=== PATIENT | female | born 2000 | race African-American/Black ===

== ENCOUNTER 2022-04-10 15:46 | Emergency (ER) | payer MEDICAID ==
[~2022-04-10] VITALS: Ht 170.2 cm; Wt 187.0 kg
[2022-04-10 16:59] VITALS: BP 129/77
[2022-04-10 18:15] LABS: Basophils # (auto) 0 10 ^3/uL (0-0.2); Basophils % (auto) 0.2 % (0.0-2.0); Eosinophils # (auto) 0 10 ^3/uL (0-0.8); Eosinophils % (auto) 0.1 % (0.0-7.0); Hematocrit 36.4 % (36.0-46.0); Hemoglobin 12.2 g/dL (12.2-16.2); Lymphocytes # (auto) 1.5 10 ^3/uL (0.4-5.4); Lymphocytes % (auto) 21.6 % (10.0-50.0); Mean Corpuscular Hemoglobin 31.3 pg (28.0-32.0); Mean Corpuscular Hgb Conc. 33.6 g/dL (32.0-36.0); Mean Corpuscular Volume 93.1 fL (80.0-100.0); Monocytes # (auto) 0.6 10 ^3/uL (0-1.3); Neutrophils # (auto) 4.9 10 ^3/uL (1.6-8.6); Neutrophils % (auto) 70.1 % (37.0-80.0); Nucleated Red Blood Cells % 0.1 %; Red Blood Cells 3.92 10^6/uL (4.0-5.20); Red Cell Distribution Width 13.2 % (11.8-14.3)
[2022-04-10 18:28] LABS: Albumin 3.4 g/dL (3.4-5.0); BUN/Creatinine Ratio 12.3; Calcium 9.1 mg/dL (8.5-10.1); Potassium 4.1 mmol/L (3.5-5.1)
[2022-04-10] MEDS ORDERED: KETOROLAC TROMETH 60MG/2ML VIAL IM ONE (18:30)
[2022-04-10 18:31] LABS: Bilirubin, Total 0.6 mg/dL (0.2-1.0)
[2022-04-10] MEDS ORDERED: ACET-1080 PO (18:33)
[2022-04-10 18:48] LABS: Urine Bacteria NONE SEEN /hpf (None Seen); Urine Blood Negative /uL (Negative); Urine Mucus FEW (None Seen); Urine Specific Gravity 1.014 (1.001-1.035); Urine WBC 81 /hpf (0 - 5)
[2022-04-10] MEDS ORDERED: NITR-87 PO (19:10)
== END 2022-04-10 19:20 | disposition home or self-care (01) ==
LOC: ER 15:46 → EDBD 15:46 → ER 19:19
DX: K76.0 Fatty (change of) liver, not elsewhere classified (principal); N39.0 Urinary tract infection, site not specified; Z79.899 Other long term (current) drug therapy
CPT/HCPCS: 36415; 76705; 80053; 81001; 81025; 83690; 85025; 96372; 99284; J1885

== ENCOUNTER 2022-11-02 13:38 | Emergency (ER) | payer MEDICAID ==
[~2022-11-02] VITALS: Ht 170.2 cm; Wt 76.8 kg
[~2022-11-02 13:38] MED LIST: ACET-1080 PO; NITR-87 PO
[2022-11-02 13:44] VITALS: BP 128/72; PULSE 87; RESP 18; TEMP 98.3; O2SAT 99
[2022-11-02] MEDS ORDERED: FAMOTIDINE 20 MG TAB PO ONE (15:00)
[2022-11-02] MEDS ORDERED: DexAMETHasone SOD PHOS 10MG/1ML VIAL INJ IM ONE (15:00)
[2022-11-02] MEDS ORDERED: DIPH25TA54 PO (15:00)
[2022-11-02] MEDS ORDERED: PRED20TA2 PO (15:00)
[2022-11-02] MEDS ORDERED: FAMO20TA10 PO (15:00)
[2022-11-02] MEDS ORDERED: diphenhdrAMINE HCL 25 MG CAP PO ONE (15:00)
== END 2022-11-02 17:56 | disposition home or self-care (01) ==
LOC: ER 13:38
DX: L50.0 Allergic urticaria (principal); Z79.899 Other long term (current) drug therapy
CPT/HCPCS: 96372; 99283; J1100

== ENCOUNTER → 2024-07-21 | Outpatient (CLI) | payer MEDICAID ==
[~2024-07-21] MED LIST changes: +DIPH25TA54 PO; +FAMO20TA10 PO; +PRED20TA2 PO
[2024-07-21 13:57] LABS: Basophils # (auto) 0 10 ^3/uL (0-0.2); Basophils % (auto) 0.6 % (0.0-2.0); Eosinophils # (auto) 0.2 10 ^3/uL (0-0.8); Eosinophils % (auto) 4.3 % (0.0-7.0); Hemoglobin 12.8 g/dL (12.2-16.2); Lymphocytes # (auto) 1.9 10 ^3/uL (0.4-5.4); Lymphocytes % (auto) 32.5 % (10.0-50.0); Mean Corpuscular Hemoglobin 31.8 pg (28.0-32.0); Mean Corpuscular Hgb Conc. 34.6 g/dL (32.0-36.0); Mean Corpuscular Volume 91.9 fL (80.0-100.0); Monocytes # (auto) 0.4 10 ^3/uL (0-1.3); Monocytes % (auto) 6.8 % (0.0-12.0); Neutrophils # (auto) 3.2 10 ^3/uL (1.6-8.6); Neutrophils % (auto) 55.8 % (37.0-80.0); Nucleated Red Blood Cells % 0.1 %; Platelet Count (auto) 264 10^3/uL (140-450); Red Blood Cells 4.02 10^6/uL (4.0-5.20); Red Cell Distribution Width 13.6 % (11.8-14.3); White Blood Cell 5.8 10^3/uL (4.4-10.8)
== END | disposition home or self-care (01) ==
LOC: LAB 13:02
PROVIDERS: ATTEND Obstetrics & Gynecology
DX: O09.512 Supervision of elderly primigravida, second trimester (principal); Z3A.00 Weeks of gestation of pregnancy not specified; Z79.899 Other long term (current) drug therapy
CPT/HCPCS: 83036; 84144; 84702; 86780; 86850; 86900; 86901; 87340

== ENCOUNTER 2024-11-16 11:27 | Observation (INO) | payer MEDICAID ==
--- NOTE | 2024-11-16 12:41 | DVH ---
BIOPHYSICAL PROFILE HISTORY: GDMA2S TECHNIQUE: Multiple transabdominal real-time grayscale sonographic images through the gravid uterus of the fetus with duplex Doppler color flow and M-mode spectral analysis FINDINGS: BIOPHYSICAL PROFILE: breathing score: 2/2 movement score: 2 of 2 tone score: 2 of 2 Quantitative ABBI score: 2 of 2 (ABBI: 12.3 Cm.) Total score: 8 of 8 The cervix closed Single live fetus in cephalic presentation. heart rate 148 beats per minute. Anterior placenta without previa or abruption IMPRESSION: 1. Biophysical profile score: 8 of 8
--- NOTE | 2024-11-17 13:54 | DVHDS2 ---
Physician Discharge Progress N Final Diagnosis: gdm Operations or Procedures: Operations or Procedures nst reactive reviwed,sono Condition on Discharge: Good Disposition: Home Discharge Instructions: Diet: Regular Activity: Light activity Medications: na Follow Up Care: Specialist: 3d Discharge Statement: "Patient was advised to return to the ER or call 911 if any headaches, dizziness, shortness of breath, chest pain, abdominal pain, bleeding, fevers, or worsening of medical condition. Patient was counseled about treatment plan, medications, possible side effects, patientverbalized understanding. All questions were answered to the best of my ability. This discharge took greater then 30 minutes in planning, reviewing documentation, counseling the patient, and discussing with other team members." Visit Coding OBGYN Date of Service: Nov 16, 2024 Billing Provider: ALEYDA PUCKETT DO ARCHITECTURAL SUPERINTENDENT Common Visit Codes: 75563-MYOHAZJ OBS CARE (HIGH) ARCHITECTURAL SUPERINTENDENT Procedure Codes: 65450-49- NON-STRESS TEST ALEYDA PUCKETT DO Nov 17, 2024 13:54
== END 2024-11-16 13:09 | disposition home or self-care (01) ==
LOC: EDUNIT# → LDRP 11:27 → UNDOADMOB 11:27 → LDRP 11:47
PROVIDERS: ADMIT Obstetrics & Gynecology; ATTEND Obstetrics & Gynecology
DX: O24.419 Gestational diabetes mellitus in pregnancy, unspecified control (principal); Z3A.35 35 weeks gestation of pregnancy; Z98.890 Other specified postprocedural states
CPT/HCPCS: 59025; 76819; 81002; G0378

== ENCOUNTER 2024-11-16 13:19 | Outpatient (CLI) | payer MEDICAID ==
[2024-11-16 13:41] LABS: Hematocrit 37.7 % (36.0-46.0); Hemoglobin 12.8 g/dL (12.2-16.2); Mean Corpuscular Hemoglobin 31.1 pg (28.0-32.0); Mean Corpuscular Volume 91.7 fL (80.0-100.0); Nucleated Red Blood Cells % 0.0 %
== END 2024-11-16 17:00 | disposition home or self-care (01) ==
LOC: LAB 13:19
DX: Z34.80 Encounter for supervision of other normal pregnancy, unspecified trimester (principal); Z3A.00 Weeks of gestation of pregnancy not specified
CPT/HCPCS: 36415; 85025; 86780